=== PATIENT | male | born 1990 | race Caucasian/White ===

== ENCOUNTER 2018-12-01 06:40 | Emergency (ER) | payer OTHER ==
[~2018-12-01] VITALS: Ht 175.3 cm; Wt 66.3 kg
[2018-12-01 06:42] VITALS: BP 142/78
[2018-12-01] MEDS ORDERED: HYDR-3240 PO (06:47)
--- NOTE | 2018-12-01 07:06 | NUR ---
BEDSIDE REPORT FROM JACQUI RODAS, PT WAS IN [facility] LAST NIGHT AFTER DROPPING 8LB WEIGHT ON FOOT PRESENTS TO ED AGAIN THIS AM FOR INCREASED PAIN, N/T IN L FOOT. L FOOT IN SPLINT, UNABLE TO PALPATE PULSE D/T SPLINT BUT PT ABLE TO MOVE ALL TOES AND CAP REFILL <3SEC. PT RESTING IN GURNEY. CALL LIGHT WITHIN REACH.
== END 2018-12-01 08:27 | disposition home or self-care (01) ==
LOC: ED 07:26
DX: S92.912A Unspecified fracture of left toe(s), initial encounter for closed fracture (principal); F17.210 Nicotine dependence, cigarettes, uncomplicated; X58.XXXA Exposure to other specified factors, initial encounter; Y93.89 Activity, other specified; Y92.89 Other specified places as the place of occurrence of the external cause; Y99.8 Other external cause status
CPT/HCPCS: 29515; 99283

== ENCOUNTER 2021-04-17 15:23 | Emergency (ER) | payer OTHER ==
[~2021-04-17] VITALS: Ht 175.3 cm; Wt 74.6 kg
[~2021-04-17 15:23] MED LIST: HYDR-2214 PO
--- NOTE | 2021-04-17 16:17 | NUR ---
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 Pt with multiple associated symptoms including tingling down both arms, sweaty and short of breath. Pt states he's had similar episodes in the past but nothing this bad.
[2021-04-17 16:45] LABS: BASOPHILS % (AUTO) 1 % (0-1); EOSINOPHILS % (AUTO) 0 % (1-7); LYMPHOCYTES % (AUTO) 14 % (22-44); MEAN CORPUSCULAR HGB CONC 34.3 g/dL (33.2-36.2); MEAN PLATELET VOLUME 8.5 fL (7.4-10.4); MONOCYTES % (AUTO) 8 % (2-9); NEUTROPHILS % (AUTO) 78 % (42-75); PLATELET COUNT 238 x10^3/uL (130-400); RED BLOOD COUNT 4.86 x10^6/uL (4.38-5.82); RED CELL DISTRIBUTION WIDTH 12.9 % (9.4-14.8)
[2021-04-17 16:56] LABS: ALBUMIN 4.4 g/dL (3.4-5.0); ANION GAP 7 mmol/L (5-15); CALCIUM 8.9 mg/dL (8.5-10.1); CHLORIDE 108 mmol/L (98-107)
[2021-04-17 17:04] LABS: ALANINE AMINOTRANSFERASE 40 U/L (12-78); ALKALINE PHOSPHATASE 75 U/L (45-117); BILIRUBIN,TOTAL 0.5 mg/dL (0.2-1.0); CREATININE 0.91 mg/dL (0.7-1.3); TROPONIN I < 0.015 ng/mL (0.000-0.045)
[2021-04-17 17:36] VITALS: BP 133/82
--- NOTE | 2021-04-17 18:06 | NUR ---
Patient given discharge instructions and they have confirmed that they understand the instructions. Patient ambulatory with steady gait.
== END 2021-04-17 18:07 | disposition home or self-care (01) ==
LOC: ED 15:53
DX: R07.89 Other chest pain (principal); R42 Dizziness and giddiness; R53.83 Other fatigue; R94.31 Abnormal electrocardiogram [ECG] [EKG]
CPT/HCPCS: 36415; 71045; 80053; 84484; 85025; 93005; 99285